=== PATIENT | male | born 1975 | race Caucasian/White ===

== ENCOUNTER 2017-11-17 09:48 | Day surgery (SDC) | payer OTHER ==
[2017-11-15 13:00] VITALS: BMI 26.6
[2017-11-17] MEDS ORDERED: oxyCODONE HCL 10 MG SUSTAINED ACTING TABLET PO STA (10:25)
[2017-11-17] MEDS ORDERED: ONDANSETRON 4 MG/2 ML VIAL IVPB PRN (12:10)
[2017-11-17] MEDS ORDERED: LACTATED RINGERS SOLUTION 1,000 ML IV SCH (12:15)
[2017-11-17] MEDS ORDERED: MIDAZOLAM HCL 2 MG/2 ML SINGLE DOSE VIAL ONE (13:36)
[2017-11-17] MEDS ORDERED: DEXAMETHASONE SOD PHOSPHATE/PF 10 MG/ML SDV ONE (13:37)
[2017-11-17] MEDS ORDERED: ceFAZolin SODIUM 1 GM VIAL ONE (13:54)
[2017-11-17] MEDS ORDERED: methylPREDNISolone ACET (DEPO) 40 MG/1 ML VIAL ONE (14:03)
[2017-11-17] MEDS ORDERED: LIDOCAINE 1%/EPI 1:100000 (20 ML MULTI DOSE VIAL) ONE (14:03)
[2017-11-17] MEDS ORDERED: THROMBIN (BOVINE) 5,000 UNIT VIAL TP ONE ×2 (14:03→15:41)
[2017-11-17] MEDS ORDERED: methylPREDNISolone ACET (DEPO) 40 MG/1 ML VIAL IM ONE (15:41)
[2017-11-17] MEDS ORDERED: GELATIN SPONGE,ABSORBABLE 1 GM PACKET TP ONE (15:42)
[2017-11-17] MEDS ORDERED: LIDOCAINE 1%/EPI 1:100000 (20 ML MULTI DOSE VIAL) INF ONE (15:43)
[2017-11-17] MEDS ORDERED: GUM MASTIC/STORAX/MSAL/ALCOHOL 1 DRP DROPSBTL MC ONE (15:45)
--- NOTE | 2017-11-17 15:54 | HP ---
History & Physical Update - History History: No Change - Physical Physical: No Change - Assessment Assessment: No Change - Plan Plan: No Change
--- NOTE | 2017-11-17 15:54 | OP ---
Operative Note - Note: Operative Date: 11/17/17 Pre-Operative Diagnosis: L4/5 spinal stenosis w/ radiculopathy Operation: L4/5 laminectomy (bilateral) Post-Operative Diagnosis: Same as Pre-op Surgeon: Haja Black Research Assistant Professor: Jim Wise Anesthesiologist/FURNITURE BUILDER: Tere Covarrubias (TLIP) Anesthesia: Spinal Specimens Removed: L4/5 disc Estimated Blood Loss (mls): 20 Fluid Volume Replaced (mls): 900 Operative Report Dictated: Yes
--- NOTE | 2017-11-17 15:55 | SURG ---
Surgery Floral Merchandiser Note Floral Merchandiser: Jim Wise PA-C Date of Service: 11/17/17 Diagnosis: L4/5 spinal stenosis with radiculopathy Procedure: L4/5 spinal stenosis w/ radiculopathy I was present for the entirety of the operative procedure. For further detail, please refer to operative report. Visit type - Case Type Case Type: Scheduled Admission - New patient This patient is new to me today: Yes Date on this admission: 11/17/17
[2017-11-17 18:11] VITALS: BP 117/65; TEMP 98
[2017-11-17 18:12] VITALS: PULSE 68
--- NOTE | 2017-11-18 11:18 | OP ---
DATE OF OPERATION: 11/17/2017 PREOPERATIVE DIAGNOSIS: L4-L5 stenosis. POSTOPERATIVE DIAGNOSIS: L4-L5 stenosis. PROCEDURE PERFORMED: Laminectomy L4-L5. SURGEON: Haja Black MD ASSOCIATE SOFTWARE DEVELOPMENT ENGINEER: ROSELINE Robles ESTIMATED BLOOD LOSS: 50 mL. IV FLUIDS: Per Anesthesia. ANESTHESIA: Spinal. COMPLICATIONS: None. DISPOSITION: The patient was brought to the PACU in stable condition. INDICATIONS FOR SURGERY: The patient is a 42-year-old gentleman who has been suffering from pain from his back down his leg. X-rays and MRI were completed, which noted that he had spinal stenosis at L4-L5. He had gone through an exhaustive course of treatment for this, which included medications, physical therapy as well as injections. Unfortunately, his pain continued to persist despite all this. At this point, risks, benefits, and alternatives were discussed, and the patient consented to surgery. DESCRIPTION OF PROCEDURE: The patient was brought to the operating room by the Anesthesia staff. After appropriate patient identification was performed, spinal anesthesia was given. A TLIP block was given. The patient was able to position himself prone onto the Inocencio frame and avoid all areas of bony prominences. Two needles were placed into his back to cassius off the L4-L5 segment, and x-ray was taken to confirm this was correct. The needle was removed, and 10 mL of lidocaine with epinephrine was injected into his back at this time. His back was prepped and draped in a sterile manner. At this point, a time-out was completed. An incision was made from the top of L4 down to the bottom of L5. Dissection was carried down to the fascia. Fascia was split open at this time, and appropriate retractor was then placed in. A spinal needle was placed onto the L4 lamina and x-rays were taken to confirm this was correct. Needle was removed, and the microscope was brought in. At this point, the interspinous ligament at L4-L5 was removed. Portions of the L4-L5 spinous processes were removed. A portion of the L4-L5 lamina were removed. The flavum was identified. It was removed. A complete decompression was performed such that by the end of the procedure the L5 nerve root appeared to be well decompressed. The nerve root was mobilized medially. A disk herniation was noted. It was removed at this time. By the time of the procedure, the L5 nerve root appeared to be well decompressed. All bleeding was well controlled at this time. Steri-Strips was placed over the nerve root. FloSeal was placed over that. The fascia was closed with a No. 1 Vicryl suture. The subcutaneous tissue was closed with 2-0 Vicryl suture. The skin was closed with 3-0 Monocryl suture. Dermabond was applied. Steri-Strips were applied. A sterile dressing was applied. The patient was placed supine on the OR bed and brought to the PACU in stable condition. Isaiah NEWMAN/[id number]
--- NOTE | 2017-11-22 15:40 | PATH ---
Surgical Pathology Report Patient Name: AYO BARCENAS Med. Rec. #: [id number] /Age/Gender: 1975 (Age: 42) / M Account: [id number] Location: [facility] Taken: 11/17/2017 Received: 11/17/2017 Reported: 11/22/2017 Physicians: Haja Black M.D. Specimen(s) Received L4-5 DISC Clinical History Spinal stenosis Final Diagnosis L4-5 DISC, LAMINECTOMY: CARTILAGE WITH DEGENERATIVE CHANGES. Electronically Signed Reina Partida M.D. Gross Description Received in formalin labeled "L4-5 disc," is a 1.1 x 1.0 x 0.2 cm aggregate of andrews fragments of fibrocartilaginous tissue. The specimen is entirely submitted in one cassette. 11/18/201711/18/2017
== END 2017-11-17 18:42 | disposition home or self-care (01) ==
LOC: FASU 09:48
PROVIDERS: ATTEND Orthopaedic Surgery Orthopaedic Surgery of the Spine
PROC: 01NB0ZZ Release Lumbar Nerve, Open Approach (ICD-10-PCS; principal; 2017-11-17 14:48)
DX: M48.061 Spinal stenosis, lumbar region without neurogenic claudication (principal)
CPT/HCPCS: 72100-TC; 88304-TC; 94760